=== PATIENT | female | born 1955 ===

== ENCOUNTER 2025-02-21 19:23 | Emergency (ER) | payer MEDICARE, OTHER ==
[~2025-02-21] VITALS: Ht 160 cm; Wt 78.9 kg
[2025-02-21 19:39] VITALS: BP 140/74; PULSE 80; RESP 16; TEMP 97.7; O2SAT 96
--- NOTE | 2025-02-21 20:09 | RADIOLOGY REPORT ---
CLINICAL INDICATION: Pain TECHNIQUE: 2 views DI SACRUM COCCYX Comparison: None FINDINGS: No evidence of acute sacral or coccygeal fracture. L3 compression deformity. Lumbosacral degenerative change and diffuse osteopenia. Multiple pelvic phleboliths. IMPRESSION: 1. No evidence of acute sacral fracture. 2. L3 compression deformity of indeterminate age, correlate for point tenderness.
--- NOTE | 2025-02-21 20:31 | Physician Documentation ---
History of Present Illness ~ Chief Complaint: Mechanical Fall Stated Complaint: HEAD/ T-BONE PAIN FALL NO BLOOD THINNERS Time Seen by MD: 20:19 HPI 69-year-old female, works here in the hospital, presents with a fall The patient tells me that she fell backwards, landing on her tailbone and then bumping the back of her head. No loss of consciousness. She reports significant pain in her tailbone, is not able to sit down. She reports mild posterior headache, states she did hit the back of her head. No laceration or bleeding. No neck pain. She denies any other related symptoms including no visual changes or vomiting. She does not feel like she has a serious head injury. She also reports some pain into her right hip. She has a history of right hip fracture. She is able to walk. She does not think that her hip is broken. No other acute concerns. Tetanus within 5 Years?: No Medication Reconciliation Allergies: Uncoded Allergies: NARCOTICS (Allergy, Severe, 02/21/25) Violent Review of Systems Neurological: Reports: headache; Denies: dizziness Musculoskeletal: Reports: pain, swelling, back pain Physical Exam Vital Signs: Temperature: 97.7, Heart Rate: 80, Respiratory Rate: 16, BP: 140/74, Pulse Oximetry: 96, Weight: 78.900 Physical Exam General: This is a pleasant and overall well-appearing middle-aged woman, standing in the room HEENT: No significant hematoma, laceration or other scalp changes. Pupils are equal. oropharynx is moist Neck: No midline tenderness on palpation of the C-spine Heart: Regular rate and rhythm, normal-appearing peripheral perfusion Lungs: normal work of breathing, normal oxygen saturation on room air Back: Mild generalized tenderness on palpation of the lower back muscles. Focal tenderness on palpation of the tailbone only. Neuro: Alert and oriented, no focal deficits Psychiatric: Calm and cooperative with exam Progress Results/Orders Results/Orders Orders - ADA BUNN MD Sacrum & Coccyx (02/21/25 19:45) Completed Orders - ADA BUNN MD Sacrum & Coccyx (02/21/25 19:45) Vital Signs 02/21/25 19:39 Temp 97.7 Pulse 80 Resp 16 B/P (MAP) 140/74 Pulse Ox 96 EKG/XRAY/CT/US/VASC/MRI Bone/Soft Tissue X-Ray (Ext.) : Additional Comment I personally interpreted the x-ray, and it shows: No tailbone fracture. L3 compression fracture. No sacral fracture. Medical Decision Making Additional information obtaine: N/A Findings na Differential Dx:Considerations: Include: Closed head injury, Fracture(s), Contusion(s), Hematoma(s) Additional Comment The patient presents with a fall, with head injury, back pain, and tailbone pain. On exam, she has no findings to suggest a definite fracture or other dangerous process. She did hit her head but has no significant headache or other associated symptoms. I did offer to do a head CT but she declined. She does have pain in her tailbone, but x-ray shows no fracture. She also has some pain in her right hip, but declined an x-ray. Overall this all appears consistent with a tailbone contusion. She will be discharged with symptomatic treatment and a work note. If she continues to have any significant pain in her head or hip she will return for imaging. Departure Time of Disposition: 20:40 Disposition: HOME / SELF CARE / HOMELESS Impression: Primary Impression: Fall Additional Impression: Contusion of coccyx Condition: Stable Referrals: NO PRIMARY CARE PROVIDER (PCP) Education Educated: Patient Educated regarding: diagnosis, need for follow up Signature Scribe Signature: na Attestation: ADA Dutton MD Feb 21, 2025 20:31
== END 2025-02-21 20:56 | disposition home or self-care (01) ==
LOC: ER 19:24
DX: S30.0XXA Contusion of lower back and pelvis, initial encounter (principal); W18.39XA Other fall on same level, initial encounter; Y93.89 Activity, other specified; Y92.89 Other specified places as the place of occurrence of the external cause; Y99.8 Other external cause status
CPT/HCPCS: 72220; 99283